=== PATIENT | male | born 1995 | race Caucasian/White ===

== ENCOUNTER 2017-03-19 08:50 | Emergency (ER) | payer OTHER ==
[~2017-03-19] VITALS: Ht 180.3 cm; Wt 65.8 kg
[2017-03-19 08:53] VITALS: BP 131/70
--- NOTE | 2017-03-19 09:36 | ED GENERAL ADULT ---
History of Present Illness General Chief Complaint: Sore Throat, Dental Pain Stated Complaint: SORE THROAT, X 5 DAYS Source: patient Exam Limitations: no limitations Vital Signs & Intake/Output Vital Signs & Intake/Output Vital Signs Date Time Temp Pulse Resp B/P B/P Pulse O2 O2 Flow FiO2 Mean Ox Delivery Rate 03/19 0853 98.4 45 18 131/70 95 Room Air Room Air Triage Note: TRIAGE: 21 Y/O MALE PRESENTS C/O SORE THROAT SINCE MONDAY. STREP SWABS OBTAINED AND SENT FROM TRIAGE. Triage Nurses Notes Reviewed? yes Onset: 5 days ago Duration: better, constant Severity: mild HPI: 21-year-old otherwise healthy male presenting with sore throat 5 days. Reports sore throat has gradually been improving. Endorses cough productive of yellow sputum. Denies any fevers or sick contacts. Denies abdominal pain. (ODELL ROBERTS,MAGALY) Past History Travel History Traveled to [place] past 21 day No Medical History Any Pertinent Medical History? none Neurological: NONE EENT: NONE Cardiovascular: NONE Respiratory: NONE Gastrointestinal: NONE Hepatic: NONE Renal: NONE Musculoskeletal: NONE Psychiatric: NONE Endocrine: NONE Blood Disorders: NONE Cancer(s): NONE IMMUNOPATHOLOGIST/Reproductive: NONE Surgical History Surgical History: non-contributory Psychosocial History What is your primary language Yakut Tobacco Use: Never used ETOH Use: occasional use Illicit Drug Use: denies illicit drug use Family History Hx Contributory? No (ODELL ROBERTS,MAGALY) Review of Systems Review of Systems Constitutional: Denies: chills, fever, malaise, weakness. EENTM: Reports: throat pain. Denies: throat swelling. Respiratory: Reports: cough, sputum production. Denies: short of breath, wheezing. Cardiovascular: Reports: no symptoms. GI: Reports: no symptoms. (MAGALY BAIN PA-C) Physical Exam Physical Exam General Appearance: well developed/nourished, no apparent distress Head: atraumatic Ears, Nose, Throat: pharyngeal erythema, +OP erythema, no edema, no tonsillar enlargement, uvula midline. Neck: normal inspection, supple, no cervical LAD Respiratory: normal breath sounds, lungs clear Core Measures ACS in differential dx? No CVA/TIA Diagnosis: No Severe Sepsis Present: No Septic Shock Present: No (MAGALY BAIN PA-C) Progress Differential Diagnoses I considered the following diagnoses in my evaluation of the patient: [Strep pharyngitis versus viral pharyngitis versus EBV versus peritonsillar abscess versus retropharyngeal abscess versus epiglottitis] For cough the following diagnoses were considered: Viral URI versus bronchitis versus pneumonia Plan of Care: Orders Procedure Date/time Status THROAT CULTURE W/QUICK STREP 03/19 0855 Active Patient with low Centor criteria-no fevers, no lymphadenopathy, present cough, no exudates. However rapid strep was sent at triage, was found to be negative. Strep culture sent and pending. Cough likely to be viral in the absence of fevers or focal findings on lung exam. Chest x-ray not indicated at this time. Patient counseled on symptomatic care to help alleviate sore throat and instructed to all follow up with primary care provider for reevaluation. (MAGALY BAIN PA-C) Initial ED EKG: none (MAGALY BAIN PA-C) Departure Departure Disposition: HOME OR SELF CARE Condition: Stable Clinical Impression Primary Impression: Pharyngitis Referrals: ZAKIA CASTILLO MD (PCP/Family) Additional Instructions: Use warm salt water gargles to help alleviate sore throat. Maintain adequate fluid intake. Follow-up with your primary care provider for reevaluation. Return to the ED for any new or worsening symptoms. Departure Forms: Customer Survey General Discharge Information (MAGALY BAIN PA-C) PA/[employer]CH[employer] Co-Sign Statement Statement: ED Attending supervision documentation- I saw and evaluated the patient. I have also reviewed all the pertinent lab results and diagnostic results. I agree with the findings and the plan of care as documented in the PA's/MARINE DIESEL MECHANIC's documentation. x I have reviewed the ED Record and agree with the PA's/MARINE DIESEL MECHANIC's documentation. [] Additions or exceptions (if any) to the PAs/MARINE DIESEL MECHANIC's note and plan are summarized below: [] (RADHA RONQUILLO MD) Critical Care Note Critical Care Note Critical Care Time: non-applicable (MAGALY BAIN PA-C)
== END 2017-03-19 09:43 ==
LOC: ERH 08:50
DX: J02.9 Acute pharyngitis, unspecified (principal)